=== PATIENT | female | born 1955 | race Caucasian/White ===

== ENCOUNTER 2016-04-25 08:40 | Day surgery (SDC) | payer OTHER ==
--- NOTE | 2016-04-20 12:25 | HP ---
PREOPERATIVE HISTORY AND PHYSICAL: DATE OF SURGERY/ADMISSION: 04/25/16 [facility] DATE OF OFFICE VISIT/ENCOUNTER: 04/19/16 ATTENDING SURGEON: Dr. Celeste Powell. PROCEDURE: Right middle finger DIP joint fusion. CHIEF COMPLAINT: Right middle finger pain. HISTORY OF PRESENT ILLNESS: This is a 60-year-old female who complains of pain at the DIP joint of her right middle finger that has been progressively worsening overtime. She has a history of arthritis in her fingers and in the past has undergone a right index finger DIP joint fusion with Dr. Powell and did very well with that. She is interested in pursuing the same surgical intervention for her right middle finger at this time. PAST MEDICAL HISTORY: 1. Sleep apnea. 2. Anxiety. PAST SURGICAL HISTORY: 1. Bilateral index finger DIP joint fusion. 2. Hysterectomy. 3. Tubal ligation. 4. Left carpal tunnel release. CURRENT MEDICATIONS: 1. Iron 325 mg 1 tab daily. 2. Lorazepam 0.5 mg 1 tab p.r.n. anxiety. ALLERGIES: 1. BENADRYL causes hives. 2. PAPER TAPE causes contact dermatitis. FAMILY MEDICAL HISTORY: Congestive heart failure and colon cancer. SOCIAL HISTORY: The patient is retired. However, she currently runs a bed and breakfast. She is a smoker approximately 15 cigarettes per day, has done so for the past 50 years. She denies recreational drug use and alcohol use. REVIEW OF SYSTEMS: General: Negative for fevers, chills or night sweats. No known anesthesia problems. HEENT: Negative for headache, lightheadedness or syncopal episodes. Integumentary: Negative for abrasions, lesions or open wounds. Cardiothoracic: Negative for chest pain, palpitations or edema. Negative for hypertension. Pulmonary: Positive for sleep apnea. Negative for shortness of breath with exertion, chronic cough or COPD. GI: Negative for nausea, vomiting, diarrhea or constipation or GERD. : Negative for nocturia , urinary frequency, urgency, history of UTIs or kidney problems. Musculoskeletal: Positive for current complaints. Negative for chronic or intermittent back pain. No history of fractures. Neurological: Positive for anxiety, negative for paresthesias, numbness, history of seizure, stroke or epilepsy. Endocrine: Negative for diabetes or thyroid issues. Hematologic: Negative for easy bruising, anemia, excessive bleeding or history of DVT. Infectious Disease: Negative for history of MRSA, hepatitis C or HIV. PHYSICAL EXAMINATION GENERAL: A well-developed, well-nourished 60-year-old female in no acute distress. VITAL SIGNS: Height 5 feet 6 inches, weight 157 pounds, pulse rate 84, blood pressure 130/65. HEENT: Normocephalic, atraumatic. Pupils are equal, round and reactive to light and accommodation. Extraocular movements are intact. Throat is clear. NECK: Supple. No palpable lymph nodes. PULMONARY: Lungs are clear to auscultation bilaterally. No wheezes, rales or rhonchi. CARDIOTHORACIC: Regular rate and rhythm. S1, S2. No murmurs, rubs or gallops. No edema. ABDOMEN: Positive bowel sounds, soft and nontender. MUSCULOSKELETAL: One exam of the right middle finger, there is obvious DIP arthritic deformity and pain with palpation at the joint. She has some decreased range of motion but full extension. Skin is intact. Neurovascular function is intact. NEUROLOGIC: Alert and oriented x3. Cranial nerves X through XII are intact. Sensation is intact to light touch. IMAGING STUDIES: X-rays AP, lateral, and oblique of the right middle finger showed severe degenerative arthritis of the DIP joint. 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 PLAN: The patient is scheduled to undergo a right middle finger DIP joint fusion with Dr. Powell on 04/25/16. She will return to the office 10 to 14 days postop for followup and suture removal. The patient prefers to use over-the- counter medications for postoperative pain management. SHANTANU MARTINEZ [id number]/[facility] #: [id number] MTDRachael
[~2016-04-25 08:40] MED LIST: Buffered Lidocaine 1% SYR 3ML* 3 ML/SYR SYRINGE INTRADERM ONE
[2016-04-25] MEDS ORDERED: ceFAZolin 2 GM PREMIX (*) 2 GM/50 ML BAG IVPB ONE (08:56)
[2016-04-25] MEDS ORDERED: Midazolam* 1 MG/ML 2 ML VIAL (2 MG) ONE (09:50)
[2016-04-25] MEDS ORDERED: Lidocaine 1% INJ* 10 MG/ML 30 ML SDV ONE (11:01)
[2016-04-25] MEDS ORDERED: Propofol* 10 MG/ML 20 ML BTL IV PUSH ONE (11:11)
[2016-04-25] MEDS ORDERED: Lidocaine 2% PF * 5 ML VIAL ONE (11:11)
[2016-04-25 12:27] VITALS: BP 139/64
--- NOTE | 2016-04-25 16:42 | RAD ---
CPT II Codes: 6045F INDICATION: Right long finger pain TECHNIQUE: Intraoperative fluoroscopy was provided during percutaneous distal interphalangeal joint fusion. FINDINGS: 3 spot films depict percutaneous pinning followed by medullary screw fixation across the right long finger distal interphalangeal joint. Fluoroscopy time: 31 seconds IMPRESSION: As above.
--- NOTE | 2016-04-26 03:07 | OP ---
DATE OF OPERATION: 04/25/16 - [facility] DATE OF : 51 SURGEON: Celeste Powell MD NETWORK COMMUNICATIONS ENGINEER: SHANTANU Aguila ANESTHESIOLOGIST: Sander Bennett MD ANESTHESIA: Local MAC. PRE-OP DIAGNOSIS: DIP arthritis of the right long finger. POST-OP DIAGNOSIS: DIP arthritis of the right long finger. OPERATIVE PROCEDURE: Long finger fusion of the right DIP joint. ESTIMATED BLOOD LOSS: Zero. TOURNIQUET TIME: About 25 minutes. INDICATIONS FOR PROCEDURE: Claudette is a 60-year-old female who has DIP arthritis of the right long finger. She previously had a DIP fusion of the adjacent index finger, did very well. Presents for the same on the right long finger now. DESCRIPTION OF PROCEDURE: The patient was brought to the operating room, was given a sedation anesthetic and a digital block with 10 cc of 1% plain lidocaine. The skin of her right hand and forearm was prepped and draped in the usual sterile fashion. The finger was exsanguinated with the tourniquet, which was placed at the base of the middle finger. An H-shaped incision was made center over the dorsal aspect of the DIP joint of the right long finger, dissected sharply through the tendon down to the joint capsule, which was incised and the finger was hyperflexed revealing the articular surface of the middle and distal phalanges. The articular surfaces were removed with the rongeur down to bleeding cancellous bone. The guidewire from the micro Acutrak was driven through the center of the middle phalanx through the center of the medullary canal and then driven antegrade through the distal phalanx again through the center of the phalanx. The joint was reduced and the guidewire passed across the DIP joint. The position of the guidewire was checked on the C -arm in the AP and lateral views and found to be satisfactory. We then drilled with the appropriate drill just through the proximal phalanx and a 20- mm micro Acutrak screw was passed across the DIP joint while the bones were held in apposition. The position of the screw in the AP and lateral views was found to be satisfactory. The guidewire was removed. The wounds were irrigated and skin edges re-approximated with 4-0 nylon suture. The wound was dressed with Xeroform, 4x4, Webril and a finger splint. The patient tolerated the procedure well, was brought to the recovery room in good condition. [id number]/[facility] #: [id number] MARTHA
== END 2016-04-25 12:28 | disposition home or self-care (01) ==
LOC: OREAST 08:40
PROVIDERS: ATTEND Orthopaedic Surgery
DX: M19.041 Primary osteoarthritis, right hand (principal); F17.200 Nicotine dependence, unspecified, uncomplicated; G47.33 Obstructive sleep apnea (adult) (pediatric)
CPT/HCPCS: 76000; 88304; 88311; C1713; C1776; J0690; J2250; J2704

== ENCOUNTER 2017-07-22 19:03 | Emergency (ER) | payer OTHER ==
[2017-07-22 19:33] VITALS: BP 143/67
[2017-07-22] MEDS ORDERED: Cephalexin CAP* 500 MG PO ONE ×2 (19:59→20:00)
--- NOTE | 2017-07-22 20:03 | UC ---
Gabriella Virk Emily, scribed for Keshawn Brewster MD on 07/22/17 at 2000 . Skin Complaint HPI - HPI Summary HPI Summary: This patient is a 62 year old F presenting to urgent care with a chief complaint of insect bite to L calf that occurred on 07/19/2017. The patient rates the pain 3/10 in severity. Symptoms aggravated by nothing. Symptoms alleviated by nothing. Patient reports swelling and pruritic rash. Medications reviewed. Allergies reviewed. - History of Current Complaint Chief Complaint: UCLowerExtremity Time Seen by Provider: 07/22/17 19:52 Stated Complaint: BUG BITE LEFT LEG Hx Obtained From: Patient ?: No Onset/Duration: Sudden Onset, Lasting Days, Still Present Timing: Constant Onset Severity: Mild Current Severity: Mild Pain Intensity: 3 Pain Scale Used: 0-10 Numeric Location: Discrete Aggravating Factor(s): Nothing Alleviating Factor(s): Nothing Related History: Insect Bite/Sting - Allergy/Home Medications Allergies/Adverse Reactions: Allergies Allergy/AdvReac Type Severity Reaction Status Date / Time Adhesive Tape Allergy Intermediate Hives Verified 04/25/16 09:08 diphenhydramine Allergy Hives Verified 07/22/17 19:33 [From Benadryl] Review of Systems Skin: Rash, Other - Positive insect bite Musculoskeletal: Edema All Other Systems Reviewed And Are Negative: Yes PMH/Surg Hx/FS Hx/Imm Hx Previously Healthy: No Endocrine History: Other Other Endocrine History: Negative diabetes Cardiovascular History: Other Other Cardiovascular History: Anemia - Surgical History Surgical History: Yes Surgery Procedure, Year, and Place: RIGHT HAND INDEX FINGER- FUSED, [facility]. CARPAL TUNNEL Xs 2 - LEFT, [facility]. BILATERAL TUBAL LIGATION, [facility]. HYSTERECTOMY, [facility] - Family History Known Family History: Positive: Other - Negative breast CA - Social History Occupation: Retired Lives: Alone Alcohol Use: None Substance Use Type: None Smoking Status (MU): Heavy Every Day Tobacco Smoker Type: Cigarettes Amount Used/How Often: 15 CIGARETTES PER DAY FOR 50 YRS Length of Time of Smoking/Using Tobacco: 50 YRS. Have You Smoked in the Last Year: Yes Physical Exam - Summary Physical Exam Summary: General: well-appearing, no pain distress Skin: warm, color reflects adequate perfusion, dry, Erythema posterior left calf that spreads down into foot. Blanching. No pus or drainage. Good capillary refill Head: normal Eyes: EOMI, SHIVA ENT: normal Neck: supple, nontender Respiratory: CTA, breath sounds present Cardiovascular: RRR Abdomen: soft, nontender Bowel: present Musculoskeletal: normal, strength/ROM intact Neurological: sensory/motor intact, A&O x3 Psychological: affect/mood appropriate Triage Information Reviewed: Yes Vital Signs: Initial Vital Signs Temp 98.6 F 07/22/17 19:28 Pulse 83 07/22/17 19:28 Resp 16 07/22/17 19:28 BP 143/67 07/22/17 19:28 Pulse Ox 98 07/22/17 19:28 Vital Signs Reviewed: Yes Course/Dx - Course Course Of Treatment: F/U PMD; RECHECK SOONER IF WORSE. - Diagnoses Provider Diagnoses: LEFT CALF INSECT BITE. LEFT LEG CELLULITIS Discharge - Sign-Out/Discharge Documenting (check all that apply): Discharge/Admit/Transfer - Discharge Plan Condition: Stable Disposition: HOME Prescriptions: Cephalexin CAP* [Keflex CAP*] 500 mg PO TID #28 cap Patient Education Materials: Cellulitis (ED), Insect Bite or Sting (ED) Referrals: Ramón Leslie MD [Primary Care Provider] - Additional Instructions: FOLLOW UP WITH YOUR DOCTOR. GET RECHECKED FOR ANY WORSENING OF YOUR CONDITION; PAIN, FEVER, YOU FEEL ILL OR QUESTIONS OR CONCERNS. - Billing Disposition and Condition Condition: STABLE Disposition: HOME The documentation as recorded by the Gabriella uriostegui Emily accurately reflects the service I personally performed and the decisions made by me, Keshawn Brewster MD.
== END 2017-07-22 20:14 | disposition home or self-care (01) ==
LOC: UCEAST 19:03
DX: S80.862A Insect bite (nonvenomous), left lower leg, initial encounter (principal); L03.116 Cellulitis of left lower limb; W57.XXXA Bitten or stung by nonvenomous insect and other nonvenomous arthropods, initial encounter; Y93.9 Activity, unspecified; Y92.9 Unspecified place or not applicable; D64.9 Anemia, unspecified; Z88.8 Allergy status to other drugs, medicaments and biological substances; Z91.048 Other nonmedicinal substance allergy status; F17.210 Nicotine dependence, cigarettes, uncomplicated
CPT/HCPCS: 99212; A9270-GY; G0463